=== PATIENT | male | born 1940 | race Caucasian/White ===

== ENCOUNTER 2018-02-26 07:41 | Inpatient (IN) | payer OTHER ==
[~2018-02-26] VITALS: Ht 167.6 cm; Wt 124.8 kg
[2018-02-26 10:58] VITALS: BP 131/75; PULSE 97; TEMP 36.9; O2SAT 94; Ht 167.6 cm; Wt 124.8 kg
[2018-02-26 11:10] VITALS: BP 131/75; PULSE 97; TEMP 36.9; O2SAT 95
[2018-02-26] MEDS ORDERED: ONDANSETRON INJ 2 MG/ML 2 ML VIAL IV PRN (11:45)
[2018-02-26] MEDS ORDERED: MAGNESIUM HYDROXIDE SUSP 30 ML UDC PO PRN (11:45)
[2018-02-26] MEDS ORDERED: INSULIN ASPART 100 UNITS/ML 3 ML PEN SC SCH ×2 (12:00→18:00)
[2018-02-26] MEDS ORDERED: NVLG SQ (12:03)
[2018-02-26] MEDS ORDERED: CETI10TA84 PO (12:03)
[2018-02-26] MEDS ORDERED: HYDR-4717 PO (12:03)
[2018-02-26] MEDS ORDERED: LISI10TA PO (12:03)
[2018-02-26] MEDS ORDERED: CHOLCAP2 PO (12:03)
[2018-02-26] MEDS ORDERED: ATOR80TA PO (12:03)
[2018-02-26] MEDS ORDERED: FRS/40 PO (12:03)
[2018-02-26] MEDS ORDERED: GLC/500 PO (12:03)
[2018-02-26] MEDS ORDERED: DILT120C68 PO (12:03)
[2018-02-26] MEDS ORDERED: METO25TA56 PO (12:03)
[2018-02-26] MEDS ORDERED: OMEG10007 PO (12:03)
[2018-02-26] MEDS ORDERED: PRLSR20 PO (12:03)
[2018-02-26] MEDS ORDERED: DIGO0.1219 PO (12:03)
[2018-02-26] MEDS ORDERED: ASPI81CH2 PO (12:03)
[2018-02-26] MEDS ORDERED: MULT-513 PO (12:03)
[2018-02-26] MEDS ORDERED: MXT150 PO ×2 (12:03)
[2018-02-26] MEDS ORDERED: LEVO75TA PO (12:03)
[2018-02-26] MEDS ORDERED: NITR0.6S7 SL (12:03)
[2018-02-26] MEDS ORDERED: INSDGI SC (12:03)
[2018-02-26] MEDS ORDERED: MoRPHine SULFATE 4 MG/ML 1 ML CARP\\VIAL IV PRN (12:15)
[2018-02-26] MEDS ORDERED: PNEUMOCOCCAL ADMINISTRATION CHARGE ONE (12:30)
[2018-02-26] MEDS ORDERED: PATIENT'S ALLERGY INFO NEEDS ENTERED SCH (12:45)
[2018-02-26] MEDS ORDERED: PNEUMOCOCCAL POLYSACCHARIDES 25 MCG/0.5 ML VIAL/SYR IM. ONE (13:00)
[2018-02-26] MEDS ORDERED: NURSING VERBAL MED ORDER ONE ×2 (13:00→14:15)
--- NOTE | 2018-02-26 13:43 | History and Physical ---
History & Physical Date & Time of Service: Feb 26, 2018 at 13:27 Chief Complaint: Hematuria, Bladder Mass Primary Care Physician: No Doctor, Assigned History of Present Illness pt is a transfer to our facility after presenting to [facility] ER with left lower quadrant abdominal pain associated with hematuria and possible bladder mass with comments on CT scan of possible lung metastasis. Pt is with poor site and poor hearing, is moving urine and this is now nga and not with hematuria. Despite recent heart history has not recent issues with chest pain or sob and no issues with orthopnea Past Medical/Surgical History Medical Problems: (1) Hematuria Social History Smoking Status: Former Smoker Smokeless Tobacco Use: No Alcohol Use: none Allergies Coded Allergies: No Known Allergies (Unverified , 02/26/18) Home Medications Scheduled Aspirin (Aspirin), 1 TAB PO DAILY Atorvastatin (Lipitor), 1 TAB PO DAILY Cetirizine (Zyrtec), 10 MG PO DAILY Cholecalciferol (D3-50), 1 CAP PO WK Digoxin (Digox), 125 MCG PO DAILY Diltiazem Hcl Ext Rel (Tiazac), 120 MG PO BID Fish Oil ([place]-3), 1 CAP PO DAILY Furosemide (Lasix), 40 MG PO BID Hydralazine Hcl (Apresoline), 25 MG PO TID Insulin Aspart (Novolog), 16 SQ TID Insulin Glargine (Lantus), 70 SC AMPM Levothyroxine Sodium (Synthroid), 1 TAB PO DAILY Metformin Hcl (Glucophage), 500 MG PO BID Metoprolol Tartrate (Lopressor) (Lopressor), 1 TAB PO BID Mexiletine Hcl (Mexiletine Hcl), 150 MG PO Q8 Mexiletine Hcl (Mexiletine Hcl), 150 MG PO BID Multivitamins/Minerals (Mvi With Minerals), 1 TAB PO DAILY Omeprazole (Prilosec), 20 MG PO DAILY Miscellaneous Medications Lisinopril (Prinivil), 10 MG PO Nitroglycerin (Nitroglycerin), 0.3 MG SL Review of Systems Constitutional: + weakness, + fatigue, No fever, No chills Respiratory: No cough, No shortness of breath, No dyspnea on exertion Cardiovascular: No chest pain, No orthopnea, No edema Abdomen: + pain, + nausea, No vomiting, No diarrhea Musculoskeletal: No joint pain, No muscle pain, No swelling Genitourinary - Male: + hematuria, No dysuria Neurologic: No memory loss, No paralysis, No numbness/tingling Psychiatric: No depression symptoms, No anhedonism, No anxiety Hematologic / Lymphatic: + abnormal bleeding/bruising, No swollen lymph nodes Integumentary: No rash, No itch, No new/changing skin lesions Physical Exam Vital Signs Date Time Temp Pulse Resp B/P (MAP) Pulse Ox O2 Delivery O2 Flow Rate FiO2 02/26/18 11:10 36.9 97 16 131/75 (93) 95 Nasal Cannula 3.0 02/26/18 10:58 36.9 97 19 131/75 94 Nasal Cannula 3.0 General Appearance: WD/WN, + mild distress Head: normocephalic, atraumatic Neck: supple, no JVD Respiratory/Chest: chest non-tender, lungs clear, normal breath sounds Cardiovascular: regular rate, rhythm, no murmur Abdomen/GI: normal bowel sounds, soft, + tenderness Back: normal inspection, no CVA tenderness, no muscle spasm Extremities/Musculoskelatal: no pedal edema, normal range of motion Neurologic/Psych: alert, oriented x 3 Skin: normal color, warm/dry, no rash Diagnostics Laboratory Results Results Past 24 Hours Test 02/26/18 12:38 Range/Units Impression Assessment and Plan 78 M transferred from [facility] ER with hematuria, suspicious bladder mass and concern for possible pulmonary metastasis. Has likely ischemic HOUSESMITH and defibrillator, takes digoxin but no recollection of anticoagulation Hematuria, did have U/s and CT at [facility], will send urine cytology, urology consult and place navarro. will not hydrate given unknown EF and cardiac status anemia type unknown, will follow and check iron chronic respiratory failure with hypoxia, supplemental oxygen with no use of inhalers Cardiac, will hold aspirin, continue metoprolol, lisinopril, diltiazem and digoxin, check Digoxin level. Suspect for Afib will cotinue rate controls and dig Htn continue hydralazine Diabetes with neuropathy will have on 1/2 dose of lantus with ssi and continue jaron I, also use Neurontin for neuropathic pain hypothyroidism, will continue Synthroid and check tsh prilosec for gerd scd and teds for DVT prevention given concern for hematuria Advanced Directives Existing Living Will: Yes Existing Power of Sub Prior: Yes Resuscitation Status VTE Prophylaxis Will order VTE Prophylaxis: Yes
[2018-02-26 15:06] VITALS: BP 150/61; PULSE 108; TEMP 36.9; O2SAT 97
[2018-02-26 15:35] VITALS: O2SAT 97
[2018-02-26] MEDS: MoRPHine SULFATE 2 MG/ML CARP IV PRN ×2 (15:48→23:31)
--- NOTE | 2018-02-26 16:55 | Urology Consultation ---
History General Date of Service: Feb 26, 2018. Chief Complaint: Hematuria Primary Care Physician: Ivy Watson D.O. Pt seen a urologist before?: Yes ([facility]) If yes, why?: hematuria History of Present Illness 78YO male with hematuria. Direct admit from [facility] - per admitting physician's report patient has a bladder tumor seen on CT with concern for pulmonary metastasis. CT images not yet available for me to review. Patient reports bladder pain x 3 months with hematuria, was being worked up for this by Urology through the [place] - scheduled for cystoscopy last week and was unable to coordinate transportation so this was not done. Had been rescheduled for next month however his worsening bladder pain brought him to [facility] yesterday. Also reports passing clumps of tissue in his urine x 3 months. Patient is a former smoker. Reports that he is still making good urine and passing urine without difficulty. Condom catheter in place at time of exam, draining clear yellow urine. Patient denies nausea/vomiting, denies fever. Reports that his bladder pain is currently well controlled with analgesics. Patient has hearing and vision deficit. Imaging Images were done at: [facility] - unavailable for review Laboratory Labs were reviewed and are within normal limits unless listed below. Labs are available in the chart and at [facility] Past History diabetes, GERD, hypertension, hypothyroidism Social History Hx Tobacco Use In Past Year?: No Smoking: quit greater than 1 year Drug use: none Allergies Coded Allergies: No Known Allergies (Unverified , 02/26/18) Medications Home Medications: Home Meds and Scripts Medications Dose Route/Sig Max Daily Dose Days Date Category Apresoline (Hydralazine Hcl) 50 Mg Tab 25 Mg PO TID 02/26/18 Reported Mexiletine Hcl 150 Mg Cap 150 Mg PO BID 02/26/18 Reported Mexiletine Hcl 150 Mg Cap 150 Mg PO Q8 02/26/18 Reported Labelle-3 (Fish Oil) 1 Ea Cap 1 Cap PO DAILY 02/26/18 Reported Prilosec (Omeprazole) 20 Mg Capcr 20 Mg PO DAILY 02/26/18 Reported Glucophage (Metformin Hcl) 500 Mg Tab 500 Mg PO BID 02/26/18 Reported Tiazac (Diltiazem HCl) 120 Mg Capcr 120 Mg PO BID 02/26/18 Reported Digox (Digoxin) 125 Mcg Tab 125 Mcg PO DAILY 02/26/18 Reported Lipitor (Atorvastatin) 80 Mg Tab 1 Tab PO DAILY 30 02/26/18 Reported Lantus (Insulin Glargine) 100 Unit/Ml Inj 70 SC AMPM 02/26/18 Reported Novolog (Insulin Aspart) 100 Units/Ml Inj 16 SQ TID 02/26/18 Reported Zyrtec (Cetirizine HCl) 10 Mg Tab 10 Mg PO DAILY 02/26/18 Reported Mvi With Minerals (Multivitamins/Minerals) Tab 1 Tab PO DAILY 02/26/18 Reported Synthroid (Levothyroxine Sodium) 75 Mcg Tab 1 Tab PO DAILY 30 02/26/18 Reported D3-50 (Cholecalciferol) 50,000 Unit Cap 1 Cap PO WK 84 02/26/18 Reported Prinivil (Lisinopril) 10 Mg Tab 10 Mg PO 02/26/18 Reported Lopressor (Metoprolol Tartrate) 25 Mg Tab 1 Tab PO BID 90 02/26/18 Reported Lasix (Furosemide) 40 Mg Tab 40 Mg PO BID 02/26/18 Reported Nitroglycerin 0.6 Mg Sub 0.3 Mg SL 02/26/18 Reported Aspirin 81 Mg Chw 1 Tab PO DAILY 30 02/26/18 Reported Inpatient Medications: Current Inpatient Medications Medications (Trade) Dose Ordered Sig/Davon Route Start Time Stop Time Status Last Admin Dose Admin Acetaminophen (Tylenol Tab) 650 mg Q4H PRN PO 02/26/18 11:45 03/28/18 11:44 Magnesium Hydroxide (Milk Of Magnesia Susp) 30 ml Q6H PRN PO 02/26/18 11:45 03/28/18 11:44 Ondansetron HCl (Zofran Inj) 4 mg Q6H PRN IV 02/26/18 11:45 03/28/18 11:44 Insulin Glargine (Lantus Solostar Pen) 35 units BID SC 02/26/18 21:00 03/28/18 20:59 Morphine Sulfate (MoRPHine SULFATE INJ) 2 mg Q4H PRN IV 02/26/18 12:15 03/12/18 12:14 02/26/18 15:48 2 MG Morphine Sulfate (MoRPHine SULFATE INJ) 4 mg Q4H PRN IV 02/26/18 12:15 03/12/18 12:14 Atorvastatin Calcium (Lipitor Tab) 80 mg DAILY PO 02/27/18 09:00 03/29/18 08:59 Cetirizine HCl (zyrTEC TAB) 10 mg DAILY PO 02/27/18 09:00 03/29/18 08:59 Digoxin (Lanoxin Tab) 0.125 mg DAILY PO 02/27/18 09:00 03/29/18 08:59 Diltiazem HCl (TIAzac CAP) 120 mg BID PO 02/26/18 21:00 03/28/18 20:59 Furosemide (Lasix Tab) 40 mg BID17 PO 02/26/18 17:00 03/28/18 16:59 Hydralazine HCl (Apresoline Tab) 25 mg TID PO 02/26/18 14:30 03/28/18 14:29 02/26/18 15:51 25 MG Levothyroxine Sodium (Synthroid Tab) 75 mcg DAILYBB PO 02/27/18 06:00 03/29/18 05:59 Lisinopril (Zestril Tab) 10 mg DAILY PO 02/27/18 09:00 03/29/18 08:59 Metoprolol Tartrate (Lopressor Tab) 25 mg BID PO 02/26/18 21:00 03/28/18 20:59 Pantoprazole Sodium (Protonix Tab) 40 mg DAILY PO 02/27/18 09:00 03/29/18 08:59 Insulin Aspart (novoLOG ASPART) SLIDING SCALE PARAMETER ACHS SC 02/26/18 17:15 03/28/18 17:14 Review of Systems Review of Systems Constitutional: No fever, No chills Eyes: No blurred vision Gastrointestinal: + abdominal pain, No nausea, No vomiting Cardiovascular: No chest pain Respiratory: No shortness of breath Skin: No problem reported Musculoskeletal: No back pain Ears / Nose / Throat: + hearing loss Psychologic / Mental: No problem reported Male : + see HPI Physical Exam Vital Signs: Vital Signs Past 12 Hours Date Time Temp Pulse Resp B/P (MAP) Pulse Ox O2 Delivery O2 Flow Rate FiO2 02/26/18 15:06 36.9 108 16 150/61 (90) 97 Nasal Cannula 3.0 02/26/18 12:00 Nasal Cannula 3.0 02/26/18 11:10 36.9 97 16 131/75 (93) 95 Nasal Cannula 3.0 02/26/18 10:58 36.9 97 19 131/75 94 Nasal Cannula 3.0 Physical Exam: General Appearance: no apparent distress Eyes: bilateral eyes normal inspection, bilateral eyes pertinent finding ( legally blind) ENT: hearing grossly normal (with loud voice) Neck: no JVD Respiratory/Chest: no respiratory distress, no accessory muscle use Cardiovascular: no JVD Gastrointestinal: Abdomen: diffuse Bladder: normal bladder Renal: normal renal Extremities: normal inspection Neurologic/Psychiatric: alert, normal mood/affect, oriented x 3 Skin: normal color Assessment & Plan Assessment & Plan 78YO male with hematuria. Per admitting physician, bladder mass and concern for pulmonary metastasis on CT from [facility] - images not available for me to review. Renal US images also not available for me to review. Check urine cytology. Condom catheter in place draining clear yellow urine - can continue, if drainage slows or patient reports bladder fullness advise bladder scan and Shin placement. Will plan to review CT images when available. NPO at midnight - potential cystoscopy, TURBT tomorrow. Thanks for the consult, will continue to follow.
[2018-02-26] MEDS: INSULIN ASPART 100 UNITS/ML 3 ML PEN SC SCH ×2 (18:04→21:27)
[2018-02-26] MEDS: FUROSEMIDE 40 MG TAB PO SCH (18:04)
[2018-02-26 21:27] LABS: HEMATOCRIT 28.8 % (42-52); MEAN CELL VOLUME 82.3 fL (80-100); MEAN CORPUSCULAR HEMOGLOBIN 25.7 pg (25-34); MEAN CORPUSCULAR HGB CONC 31.3 g/dl (32-36); MEAN PLATELET VOLUME 9.2 fL (7.4-10.4); PLATELET COUNT 366 K/uL (130-400); RED CELL DISTRIBUTION WIDTH CV 15.4 % (11.5-14.5); RED CELL DISTRIBUTION WIDTH SD 46.3 fL (36.4-46.3); WHITE BLOOD COUNT 13.36 K/uL (4.8-10.8)
[2018-02-26 21:33] VITALS: BP 145/55; PULSE 83
[2018-02-26] MEDS: INSULIN GLARGINE SOLOSTAR 100 UNITS/ML 3 ML PEN SC SCH (21:48)
--- NOTE | 2018-02-26 22:28 | Progress Note ---
Subjective Date of Service: Feb 26, 2018. Subjective Pt evaluation today including: conversation w/ patient, physical exam, review of studies Pain: left flank pain Voiding: incontinence pt had 125 cc pvr but has been incontinent of urine clear states he had a big blood clot several weeks ago and [facility] He is a disabled vet with COPD and CAD went to hospital for pain Not clear if he received blood Objective Vital Signs Date Time Temp Pulse Resp B/P (MAP) Pulse Ox O2 Delivery O2 Flow Rate FiO2 02/26/18 21:33 83 145/55 (85) 02/26/18 15:35 97 Nasal Cannula 3.0 02/26/18 15:06 36.9 108 16 150/61 (90) 97 Nasal Cannula 3.0 02/26/18 12:00 Nasal Cannula 3.0 02/26/18 11:10 36.9 97 16 131/75 (93) 95 Nasal Cannula 3.0 02/26/18 10:58 36.9 97 19 131/75 94 Nasal Cannula 3.0 Physical Exam General Appearance: + mild distress Abdomen: + tenderness Laboratory Results Last 24 Hours Test 02/26/18 12:00 02/26/18 12:38 02/26/18 17:10 02/26/18 20:58 Bedside Glucose 188 mg/dl 233 mg/dl 240 mg/dl Total Iron Binding Capacity 190 mcg/dl Test 02/26/18 21:08 White Blood Count 13.36 K/uL Red Blood Count 3.50 M/uL Hemoglobin 9.0 g/dL Hematocrit 28.8 % Mean Corpuscular Volume 82.3 fL Mean Corpuscular Hemoglobin 25.7 pg Mean Corpuscular Hemoglobin Concent 31.3 g/dl RDW Standard Deviation 46.3 fL RDW Coefficient of Variation 15.4 % Platelet Count 366 K/uL Mean Platelet Volume 9.2 fL Assessment and Plan CT shows large left sided bladder mass . Pt with some calcifications in the kidney no definite left hydro but suspect mass obstructs the left ureter Pt high risk for surgery and does not appaear to be a good candidate for a cystectomy Suspect invasive mass but ideally needs cysto and turbt for staging and possible cancer control Hct 28 blood to be typed and screened in AM .No current hematuria , will leave navarro out to prevent starting bleeding Unable to locate phone number of his sister to call will try to contact in AM urine c/s pending, start cipro empirically pending possible am surgery
[2018-02-26] MEDS: CIPROFLOXACIN / D5W 400 MG in PREMIXED IN D5W 200 ML IV SCH (22:53)
[2018-02-26 22:57] VITALS: BP 176/76; PULSE 86; TEMP 37.5; O2SAT 95
[2018-02-26] MEDS: METOPROLOL TARTRATE 25 MG TAB PO SCH (23:26)
[2018-02-26] MEDS: DILTIAZEM HCL 120 MG EXT REL CAP PO SCH (23:26)
[2018-02-27] VITALS (7 sets, daily range): BP systolic 116–163; BP diastolic 64–76; PULSE 62–76; TEMP 36.9–37; O2SAT 91–98
[2018-02-27] MEDS: ACETAMINOPHEN 325 MG TAB PO PRN ×2 (04:19→09:11)
[2018-02-27] MEDS ORDERED: NURSING VERBAL MED ORDER ONE ×2 (04:45→17:45)
[2018-02-27] MEDS: LEVOTHYROXINE 75 MCG TAB PO SCH (05:13)
[2018-02-27 06:10] LABS: HEMATOCRIT 27.7 % (42-52); HEMOGLOBIN 8.6 g/dL (14.0-18.0); MEAN CELL VOLUME 83.2 fL (80-100); MEAN CORPUSCULAR HEMOGLOBIN 25.8 pg (25-34); PLATELET COUNT 359 K/uL (130-400); RED CELL DISTRIBUTION WIDTH CV 15.4 % (11.5-14.5); RED CELL DISTRIBUTION WIDTH SD 46.8 fL (36.4-46.3); WHITE BLOOD COUNT 13.38 K/uL (4.8-10.8)
[2018-02-27] MEDS: INSULIN ASPART 100 UNITS/ML 3 ML PEN SC SCH ×4 (06:13→21:29)
--- NOTE | 2018-02-27 06:23 | Clinical Documentation Query ---
CLINICAL DOCUMENTATION QUERY 78-y/o male transfer from [facility] with left lower quadrant abdominal pain associated with hematuria and possible bladder mass with comments on CT scan of possible lung metastasis. Bladder mass only codes to disorder of bladder. In your clinical opinion is this patient being managed for: ( ) Suspected neoplastic bladder mass ( ) Not Agree ( ) Other explanation of clinical findings (No explanation is considered a No Response) ( ) Unable to determine ( ) Need to Discuss (Phone CDS or qliq) (No discussion is considered a No Response) The medical record reflects the following clinical findings, treatment, and risk factors. Clinical Indicators: As above Treatment: Urology consult, pending cysto and or TURBT Risk Factors: Age Please clarify and document your clinical opinion in the progress notes and discharge summary. Terms such as "probable", "suspected", "likely", "questionable", "possible", or "still to be ruled out" are acceptable. IF IN AGREEMENT, YOU MUST DOCUMENT ABOVE DIAGNOSTIC STATEMENT IN DAILY PROGRESS NOTES AND DISCHARGE SUMMARY. This document is not part of the patient's record. Thank You, Fadi Small RN [phone] & via qlicCONNECT
[2018-02-27 06:54] LABS: CALCIUM 8.4 mg/dl (8.5-10.1); CREATININE 1.74 mg/dl (0.60-1.40)
--- NOTE | 2018-02-27 08:00 | Clinical Documentation Query ---
CLINICAL DOCUMENTATION QUERY 78-y/o male transfer from [facility] with left lower quadrant abdominal pain associated with hematuria and possible bladder mass with comments on CT scan of possible lung metastasis. Bladder mass only codes to disorder of bladder. In your clinical opinion is this patient being managed for: ( x ) Suspected neoplastic bladder mass ( ) Not Agree ( ) Other explanation of clinical findings (No explanation is considered a No Response) ( ) Unable to determine ( ) Need to Discuss (Phone CDS or qliq) (No discussion is considered a No Response) The medical record reflects the following clinical findings, treatment, and risk factors. Clinical Indicators: As above Treatment: Urology consult, pending cysto and or TURBT Risk Factors: Age Please clarify and document your clinical opinion in the progress notes and discharge summary. Terms such as "probable", "suspected", "likely", "questionable", "possible", or "still to be ruled out" are acceptable. IF IN AGREEMENT, YOU MUST DOCUMENT ABOVE DIAGNOSTIC STATEMENT IN DAILY PROGRESS NOTES AND DISCHARGE SUMMARY. This document is not part of the patient's record. Thank You, Fadi Small RN [phone] & via qlicCONNECT
--- NOTE | 2018-02-27 08:16 | Progress Note ---
Subjective Date of Service: Feb 27, 2018. Subjective this pt is feeling discouraged as urology has told he probably metastatic disease he has some left lower quadrant pain Review of Systems Constitutional: No fever, No chills, No weakness, No fatigue Respiratory: No cough, No shortness of breath, No dyspnea on exertion Cardiac: No chest pain, No edema Abdomen: + pain, No nausea, No vomiting Male : No dysuria, No incontinence Neurologic: No memory loss, No weakness Psychiatric: No depression symptoms, No anxiety Objective Vital Signs Date Time Temp Pulse Resp B/P (MAP) Pulse Ox O2 Delivery O2 Flow Rate FiO2 02/27/18 07:21 36.9 66 20 116/69 (85) 96 Nasal Cannula 3.0 02/27/18 05:02 36.9 76 147/66 (93) 95 Nasal Cannula 3.0 02/26/18 23:28 Nasal Cannula 3.0 02/26/18 22:57 37.5 86 16 176/76 (109) 95 Nasal Cannula 2.0 02/26/18 21:33 83 145/55 (85) 02/26/18 15:35 97 Nasal Cannula 3.0 02/26/18 15:06 36.9 108 16 150/61 (90) 97 Nasal Cannula 3.0 02/26/18 12:00 Nasal Cannula 3.0 02/26/18 11:10 36.9 97 16 131/75 (93) 95 Nasal Cannula 3.0 02/26/18 10:58 36.9 97 19 131/75 94 Nasal Cannula 3.0 Physical Exam General Appearance: WD/WN, + moderate distress Eyes: normal inspection, sclerae normal Neck: supple, no JVD Respiratory/Chest: chest non-tender, lungs clear Cardiovascular: regular rate, rhythm, no murmur Abdomen: normal bowel sounds, soft, + tenderness Extremities: no pedal edema, no calf tenderness Neurologic/Psychiatric: alert, oriented x 3 Laboratory Results Last 24 Hours Test 02/26/18 12:00 02/26/18 12:38 02/26/18 17:10 02/26/18 20:58 Bedside Glucose 188 mg/dl 233 mg/dl 240 mg/dl Total Iron Binding Capacity 190 mcg/dl Test 02/26/18 21:08 02/27/18 05:33 02/27/18 06:01 White Blood Count 13.36 K/uL 13.38 K/uL Red Blood Count 3.50 M/uL 3.33 M/uL Hemoglobin 9.0 g/dL 8.6 g/dL Hematocrit 28.8 % 27.7 % Mean Corpuscular Volume 82.3 fL 83.2 fL Mean Corpuscular Hemoglobin 25.7 pg 25.8 pg Mean Corpuscular Hemoglobin Concent 31.3 g/dl 31.0 g/dl RDW Standard Deviation 46.3 fL 46.8 fL RDW Coefficient of Variation 15.4 % 15.4 % Platelet Count 366 K/uL 359 K/uL Mean Platelet Volume 9.2 fL 9.0 fL Sodium Level 135 mmol/L Potassium Level 4.0 mmol/L Chloride Level 102 mmol/L Carbon Dioxide Level 25 mmol/L Anion Gap 8.0 mmol/L Blood Urea Nitrogen 35 mg/dl Creatinine 1.74 mg/dl Est Creatinine Clear Calc Drug Dose 44.3 ml/min Estimated GFR () 42.9 Estimated GFR (Non- 37.0 BUN/Creatinine Ratio 20.2 Random Glucose 155 mg/dl Calcium Level 8.4 mg/dl Magnesium Level 2.0 mg/dl Iron Level 27 mcg/dl Bedside Glucose 173 mg/dl Assessment and Plan 78 M transferred from [facility] ER with hematuria, 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, will send urine cytology, urology consult Ct of chest suggests metastatic disease anemia of chronic disease plus iron deficiency anemia chronic respiratory failure with hypoxia,remains stable on supplemental oxygen with no use of inhalers Cardiac, will hold aspirin, continue metoprolol, lisinopril, diltiazem and digoxin, check Digoxin level. Suspect for Afib will continue rate controls and dig, son said pt had ablation, pending echo for EF here pre op Htn continue hydralazine Diabetes with neuropathy continue with 1/2 dose of lantus with ssi and continue jaron I, also use Neurontin for neuropathic pain hypothyroidism, clinically stable on Synthroid and check tsh prilosec for gerd scd and teds for DVT prevention given concern for hematuria
[2018-02-27] MEDS: DILTIAZEM HCL 120 MG EXT REL CAP PO SCH ×2 (08:50→21:30)
[2018-02-27] MEDS: DIGOXIN 0.125 MG TAB PO SCH (08:54)
[2018-02-27] MEDS: PANTOprazole SOD 40 MG TAB PO SCH (08:54)
[2018-02-27] MEDS: LISINOPRIL 10 MG TAB PO SCH (08:55)
[2018-02-27] MEDS: METOPROLOL TARTRATE 25 MG TAB PO SCH ×2 (08:55→21:31)
[2018-02-27] MEDS: ATORVASTATIN 40 MG TAB PO SCH (08:55)
[2018-02-27] MEDS: FUROSEMIDE 40 MG TAB PO SCH ×2 (08:56→17:14)
[2018-02-27] MEDS: CETIRIZINE HCL 10 MG TAB PO SCH (08:56)
[2018-02-27] MEDS: INSULIN GLARGINE SOLOSTAR 100 UNITS/ML 3 ML PEN SC SCH ×2 (09:03→21:28)
[2018-02-27] MEDS: CIPROFLOXACIN / D5W 400 MG in PREMIXED IN D5W 200 ML IV SCH ×2 (10:33→23:34)
--- NOTE | 2018-02-27 11:25 | DIAGNOSTIC IMAGING REPORT ---
CT OF THE CHEST WITHOUT IV CONTRAST CLINICAL HISTORY: Pulmonary nodules. COMPARISON STUDY: CT of the abdomen and pelvis February 25, 2018. CT DOSE: 859.23 mGy.cm TECHNIQUE: Axial images of the chest were obtained without IV contrast. Images were reviewed in the axial, sagittal, and coronal planes. IV contrast was not administered for this examination. A dose lowering technique was utilized adhering to the principles of ALARA. FINDINGS: No axillary or hilar lymphadenopathy is identified. Several mildly enlarged subcarinal lymph nodes measure up to 1.4 cm in short axis diameter. There are median sternotomy wires and postoperative findings consistent with bypass grafting. The heart is moderately enlarged. Extensive coronary artery calcification is present. There is suspected minimal mucus within the trachea. Innumerable pulmonary nodules are noted throughout the lungs. Index left lower lobe lesion shown image 142 measures 2 cm. Index right lower lobe lesion shown image 192 of 301 measures 1.1 cm. Index lingular lesion shown on image 149 measures 1 cm. These nodules are solid with slightly irregular margins. Index right upper lobe lesion shown on image 96 measures 1.1 cm. No pneumothorax or pleural effusion is noted. No suspicious bony lesions are shown. IMPRESSION: 1. Innumerable pulmonary nodules which measure up to 2 cm. Given the bladder mass on CT of February 25, 2018, these are highly suggestive of metastatic disease. 2. Several indeterminate mildly enlarged subcarinal lymph nodes. Electronically signed by: Guilherme Eric M.D. 02/27/2018 11:24 AM Dictated Date/Time: 02/27/2018 11:13 AM
[2018-02-27] MEDS: MoRPHine SULFATE 2 MG/ML CARP IV PRN (12:05)
[2018-02-27] MEDS ORDERED: PERFLUTREN LIPID MICROSPHERE (DEFINITY) IV ONE (13:38)
[2018-02-27] MEDS ORDERED: GLUCAGON FOR INJ 1 MG VIAL IM PRN (18:00)
[2018-02-27] MEDS ORDERED: GLUCOSE 40% GEL 15 GM TUBE PO PRN (18:00)
[2018-02-27] MEDS ORDERED: DEXTROSE 50% 50 ML SYR IV PRN (18:00)
[2018-02-27] MEDS ORDERED: GLUCOSE 10 TABS/TUBE PO PRN (18:00)
[2018-02-27] MEDS ORDERED: CARBOHYDRATES FOR HYPOGLYCEMIA PO PRN (18:00)
--- NOTE | 2018-02-27 19:22 | ECHOCARDIOGRAM REPORT ---
*NOTICE TO RECEIVING DEMOCRAT AGENCY This information is strictly Confidential and protected under [place] law. [place] law prohibits you from making any further disclosure of this information unless further disclosure is expressly permitted by the written consent of the person to whom it pertains or is authorized by law. A general authorization for the release of medical or other information is not sufficient for this purpose. Hospital accepts no responsibility if the information is made available to any other person, INCLUDING THE PATIENT. Interpretation Summary * Name: LINDA MICHAEL Study Date: 02/27/2018 01:06 PM BP: 155/76 mmHg * Patient Location: C.MSN\S\N378\S\2 HR: 72 * : 1940 (M/d/yyyy) Gender: Male Height: 66 in * Age: 78 yrs Ethnicity: CA Weight: 275 lb * Ordering Physician: Elias Roblero * Referring Physician: Self, Referred * Performed By: Tram Sal RDCS * * Reason For Study: CHF * BSA: 2.3 m2 * -- Conclusions -- * Technically difficult study despite use of definity ultrasound contrast. * 1. Grossly normal LV size and wall thickness. * 2. LVEF 60-65%. No regional wall motion abnormalities. * 3. RV not well visualized. * 4. Trace mitral regurgitation. * 5. Grade 2 diastolic dysfunction. * 6. No prior studies for comparison. Procedure Details * A complete two-dimensional transthoracic echocardiogram was performed (2D, M-mode, Doppler and color flow Doppler). * A contrast injection of Definity was performed to improve assessment of LV function. * Contrast was injected into an intravenous site in the left arm. * One vial of Definity ultrasound contrast was diluted in normal saline to a total volume of 10 ml. A total of '2' ml of solution was administered during imaging. * Lot # [id number] of Definity utilized for procedure. * Expiration date 1 JAN 23. * The attending nurse who injected the contrast agent was Nova Hayes RN. Left Ventricle * The left ventricle is grossly normal size. * There is normal left ventricular wall thickness. * Ejection Fraction = 60-65%. * No regional wall motion abnormalities noted. Right Ventricle * The right ventricle is not well visualized. * The right ventricular systolic function is normal as assessed by tricuspid annular plane systolic excursion (TAPSE) (normal >1.5 cm). Atria * The left atrial size is normal. * The left atrium is mildly dilated. * Right atrium not well visualized. * No ASD detected; PFO is not assessed. Mitral Valve * The mitral valve is grossly normal. * There is no mitral valve stenosis. * There is trace mitral regurgitation. Aortic Valve * The aortic valve opens well. * There is no significant aortic regurgitation. Pulmonic Valve * The pulmonary valve is inadequately visualized, but the Doppler data is adequate for interpretation. * There is no pulmonic valvular stenosis. * There is no significant pulmonary regurgitation. Great Vessels * The aortic root and proximal ascending aorta are normal sized. Pericardium/Pleural * There is no pericardial effusion. Great Vessels * IVC > 2.1, <50% change with respiration. Est RA 8 mmHg. Left Ventricular Diastolic Function * Diastolic dysfunction, Grade II (pseudonormalization pattern). MMode 2D Measurements and Calculations Ao root diam 3.5 cm Ao root area 9.6 cm\S\2 ACS 2.6 cm asc Aorta Diam 2.8 cm LVOT diam 2.2 cm LVOT area 3.9 cm\S\2 LVAd ap4 43.3 cm\S\2 LVLd ap4 9.6 cm EDV(MOD-sp4) 166.0 ml EDV(sp4-el) 166.0 ml LVAs ap4 25.2 cm\S\2 LVLs ap4 9.0 cm ESV(MOD-sp4) 59.7 ml ESV(sp4-el) 60.0 ml EF(MOD-sp4) 64.0 % EF(sp4-el) 63.9 % LVAd ap2 29.4 cm\S\2 LVLd ap2 7.4 cm EDV(MOD-sp2) 95.0 ml EDV(sp2-el) 98.8 ml LVAs ap2 15.8 cm\S\2 LVLs ap2 6.0 cm ESV(MOD-sp2) 35.1 ml ESV(sp2-el) 35.3 ml EF(MOD-sp2) 63.0 % EF(sp2-el) 64.3 % LVLd %diff -29.16 % EDV(MOD-bp) 139.4 ml LVLs %diff -49.46 % ESV(MOD-bp) 55.5 ml EF(MOD-bp) 60.2 % SV(MOD-sp4) 106.3 ml SI(MOD-sp4) 46.4 ml/m\S\2 SV(MOD-sp2) 59.9 ml SI(MOD-sp2) 26.2 ml/m\S\2 SV(MOD-bp) 83.9 ml SI(MOD-bp) 36.6 ml/m\S\2 SV(sp4-el) 106.0 ml SI(sp4-el) 46.3 ml/m\S\2 SV(sp2-el) 63.6 ml SI(sp2-el) 27.8 ml/m\S\2 Doppler Measurements and Calculations MV E max joya 93.1 cm/sec MV A max joya 75.2 cm/sec MV E/A 1.2 MV dec time 0.25 sec Ao V2 max 147.8 cm/sec Ao max PG 8.7 mmHg Ao max PG (full) 2.4 mmHg INGA(V,A) 3.4 cm\S\2 INGA(V,D) 3.4 cm\S\2 LV V1 max PG 6.4 mmHg LV V1 max 126.1 cm/sec PA V2 max 82.8 cm/sec PA max PG 2.7 mmHg PA acc slope 547.1 cm/sec\S\2 PA acc time 0.12 sec TR max joya 114.6 cm/sec PA pr(Accel) 23.5 mmHg
[2018-02-28] MEDS: LEVOTHYROXINE 75 MCG TAB PO SCH (05:59)
--- NOTE | 2018-02-28 07:38 | Progress Note ---
Subjective Date of Service: Feb 28, 2018. Objective Vital Signs Date Time Temp Pulse Resp B/P (MAP) Pulse Ox O2 Delivery O2 Flow Rate FiO2 02/27/18 23:38 36.9 67 16 163/70 (101) 91 Nasal Cannula 3.0 02/27/18 20:39 Nasal Cannula 3.0 02/27/18 14:53 37.0 62 18 157/68 (97) 96 Nasal Cannula 2.0 02/27/18 12:17 63 16 136/73 (94) 98 Nasal Cannula 3.0 02/27/18 10:33 66 98 02/27/18 09:11 72 16 155/76 (102) 97 Nasal Cannula 3.0 02/27/18 08:54 72 02/27/18 07:45 Room Air Laboratory Results Last 24 Hours Test 02/27/18 08:14 02/27/18 11:50 02/27/18 17:35 02/27/18 20:56 Bedside Glucose 155 mg/dl 169 mg/dl 150 mg/dl 198 mg/dl Test 02/28/18 04:44 Assessment and Plan 78 M transferred from [facility] ER with hematuria, 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 Has likely ischemic [employer] and defibrillator, takes digoxin but no recollection of anticoagulation Hematuria, did have U/s and CT at [facility], will send urine cytology, urology consult Ct of chest suggests metastatic disease anemia of chronic disease plus iron deficiency anemia chronic respiratory failure with hypoxia,remains stable on supplemental oxygen with no use of inhalers Cardiac, will hold aspirin, continue metoprolol, lisinopril, diltiazem and digoxin, check Digoxin level. Suspect for Afib will continue rate controls and dig, son said pt had ablation, pending echo for EF here pre op Htn continue hydralazine Diabetes with neuropathy continue with 1/2 dose of lantus with ssi and continue jaron I, also use Neurontin for neuropathic pain hypothyroidism, clinically stable on Synthroid and check tsh prilosec for gerd scd and teds for DVT prevention given concern for hematuria
[2018-02-28 07:39] VITALS: BP 160/65; PULSE 66; TEMP 37; O2SAT 96
[2018-02-28 08:15] LABS: HEMOGLOBIN 8.7 g/dL (14.0-18.0); MEAN CELL VOLUME 82.6 fL (80-100); MEAN CORPUSCULAR HEMOGLOBIN 25.7 pg (25-34); MEAN CORPUSCULAR HGB CONC 31.1 g/dl (32-36); MEAN PLATELET VOLUME 8.7 fL (7.4-10.4); PLATELET COUNT 362 K/uL (130-400); RED CELL DISTRIBUTION WIDTH CV 15.5 % (11.5-14.5); RED CELL DISTRIBUTION WIDTH SD 46.7 fL (36.4-46.3); WHITE BLOOD COUNT 12.39 K/uL (4.8-10.8)
[2018-02-28 08:58] LABS: CALCIUM 8.8 mg/dl (8.5-10.1); CREATININE 1.7 mg/dl (0.60-1.40); POTASSIUM 4.2 mmol/L (3.5-5.1)
[2018-02-28] MEDS: DIGOXIN 0.125 MG TAB PO SCH (09:03)
[2018-02-28] MEDS: FUROSEMIDE 40 MG TAB PO SCH ×2 (09:04→16:42)
[2018-02-28] MEDS: ATORVASTATIN 40 MG TAB PO SCH (09:04)
[2018-02-28] MEDS: METOPROLOL TARTRATE 25 MG TAB PO SCH (09:05)
[2018-02-28] MEDS: PANTOprazole SOD 40 MG TAB PO SCH (09:05)
[2018-02-28] MEDS: DILTIAZEM HCL 120 MG EXT REL CAP PO SCH (09:06)
[2018-02-28] MEDS: LISINOPRIL 10 MG TAB PO SCH (09:06)
[2018-02-28] MEDS: CETIRIZINE HCL 10 MG TAB PO SCH (09:07)
[2018-02-28] MEDS: INSULIN ASPART 100 UNITS/ML 3 ML PEN SC SCH ×3 (09:20→17:43)
[2018-02-28] MEDS: INSULIN GLARGINE SOLOSTAR 100 UNITS/ML 3 ML PEN SC SCH (09:28)
[2018-02-28] MEDS: CIPROFLOXACIN / D5W 400 MG in PREMIXED IN D5W 200 ML IV SCH (10:40)
--- NOTE | 2018-02-28 11:17 | Progress Note ---
Subjective Date of Service: Feb 28, 2018. 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 Long conversation today with sister (CHERELLE Hartmann) - they desire to continue care with our service and [facility] oncology. Complex family dynamics, I encouraged communication between patient, his children, and POA. Miscommunications were resolved to the best of my ability. Dr. Enriquez spoke with patient's family last night via phone. Bladder tumor to be evaluated with outpatient cystoscopy with Dr. Enriquez on Saturday, March 05 at 3:40pm - appointment confirmed with POA. Dr. Roblero to coordinate outpatient oncology referral in 2 weeks. POA requests conversation with Care Coordination team to discuss home health - will facilitate. Condom catheter remains in place draining clear yellow urine. Patient denies pain. Patient denies bladder fullness/distention. Review of Systems Constitutional: No chills, No sweats Eyes: + see HPI ENT: No problem reported Respiratory: No shortness of breath Cardiac: No chest pain Abdomen: No pain, No nausea, No vomiting Male : + see HPI Neurologic: No numbness/tingling Objective Vital Signs Date Time Temp Pulse Resp B/P (MAP) Pulse Ox O2 Delivery O2 Flow Rate FiO2 02/28/18 09:03 70 02/28/18 07:50 Nasal Cannula 3.0 02/28/18 07:49 Nasal Cannula 3.0 02/28/18 07:39 37.0 66 18 160/65 (96) 96 Nasal Cannula 3.0 02/27/18 23:38 36.9 67 16 163/70 (101) 91 Nasal Cannula 3.0 02/27/18 20:39 Nasal Cannula 3.0 02/27/18 14:53 37.0 62 18 157/68 (97) 96 Nasal Cannula 2.0 02/27/18 12:17 63 16 136/73 (94) 98 Nasal Cannula 3.0 Physical Exam General Appearance: no apparent distress Eyes: normal inspection, + pertinent finding (legally blind) ENT: hearing grossly normal (hard of hearing) Neck: no JVD Respiratory/Chest: no respiratory distress, no accessory muscle use Cardiovascular: no JVD Abdomen: non tender, soft Extremities: normal inspection Neurologic/Psychiatric: alert, normal mood/affect, oriented x 3 Skin: normal color Laboratory Results Last 24 Hours Test 02/27/18 11:50 02/27/18 17:35 02/27/18 20:56 02/28/18 07:57 Bedside Glucose 169 mg/dl 150 mg/dl 198 mg/dl White Blood Count 12.39 K/uL Red Blood Count 3.39 M/uL Hemoglobin 8.7 g/dL Hematocrit 28.0 % Mean Corpuscular Volume 82.6 fL Mean Corpuscular Hemoglobin 25.7 pg Mean Corpuscular Hemoglobin Concent 31.1 g/dl RDW Standard Deviation 46.7 fL RDW Coefficient of Variation 15.5 % Platelet Count 362 K/uL Mean Platelet Volume 8.7 fL Sodium Level 138 mmol/L Potassium Level 4.2 mmol/L Chloride Level 102 mmol/L Carbon Dioxide Level 26 mmol/L Anion Gap 10.0 mmol/L Blood Urea Nitrogen 32 mg/dl Creatinine 1.70 mg/dl Est Creatinine Clear Calc Drug Dose 45.4 ml/min Estimated GFR () 44.1 Estimated GFR (Non- 38.1 BUN/Creatinine Ratio 18.6 Random Glucose 139 mg/dl Calcium Level 8.8 mg/dl Thyroid Stimulating Hormone (TSH) 6.300 uIu/ml Free Thyroxine 1.14 ng/dl Digoxin Level 1.1 ng/ml Test 02/28/18 08:07 Bedside Glucose 208 mg/dl Assessment and Plan Outpatient management as listed above.
[2018-02-28 11:30] VITALS: BP 129/50; PULSE 60; TEMP 36.8; O2SAT 96
[2018-02-28 11:50] VITALS: BP 160/65; PULSE 70; TEMP 37; O2SAT 96
[2018-02-28] MEDS ORDERED: RXC5 PEG (11:51)
[2018-02-28] MEDS ORDERED: SENN-61 PO (11:51)
[2018-02-28] MEDS ORDERED: CIPR-255 PO (11:51)
--- NOTE | 2018-02-28 11:52 | Discharge Instructions ---
Discharge Instructions Date of Service Feb 28, 2018. Admission Reason for Admission: Hematuria, Bladder Mass Discharge Discharge Diagnosis / Problem: hematuria, bladder mass Discharge Goals Goal(s): Diagnostic testing, Therapeutic intervention Activity Recommendations Activity Limitations: as noted below Lifting Limitations: gradually increase as tolerated . Current Hospital Diet Patient's current hospital diet: Diabetes Type 2 Diet Discharge Diet Recommended Diet: Diabetes Type 2 Diet Pending Studies Studies pending at discharge: yes List of pending studies: urine cytology Medical Emergencies . Who to Call and When: Medical Emergencies: If at any time you feel your situation is an emergency, please call 911 immediately. . Non-Emergent Contact Non-Emergency issues call your: Primary Care Provider Call Non-Emergent contact if: temperature is above 101, your pain is not controlled . . "Provider Documentation" section prepared by Elias Roblero. .
[2018-02-28] MEDS ORDERED: BISACODYL 10 MG SUPP PR STA (11:54)
[2018-02-28 13:37] VITALS: BP 129/50; PULSE 60; TEMP 36.8; O2SAT 96
[2018-02-28] MEDS ORDERED: RXC5 PO (14:02)
--- NOTE | 2018-02-28 15:00 | Discharge Summary ---
Discharge Summary Date of Service Feb 28, 2018. Discharge Summary Admission Date: Feb 26, 2018 at 11:48 Discharge Date: Feb 28, 2018 Discharge Disposition: Home with services Principal Diagnosis: bladder mass suspect malignancy Medication Reconciliation New Medications: Ciprofloxacin Hcl (Cipro) 500 Mg Tab 1 TAB PO BID for 7 Days, #14 TAB Oxycodone HCl (Oxycodone HCl) 5 Mg Tab 10 MG PO QID, #40 TAB Senna (Senokot) 8.6 Mg Tab 2 TAB PO DAILY, #60 TAB Continued Medications: Atorvastatin (Lipitor) 80 Mg Tab 1 TAB PO DAILY for 30 Days, #30 TAB 5 Refills Cetirizine (Zyrtec) 10 Mg Tab 10 MG PO DAILY, TAB Cholecalciferol (D3-50) 50,000 Unit Cap 1 CAP PO WK for 84 Days, #12 CAP Digoxin (Digox) 125 Mcg Tab 125 MCG PO DAILY Diltiazem Hcl Ext Rel (Tiazac) 120 Mg Capcr 120 MG PO BID, CAP Fish Oil ([place]-3) 1 Ea Cap 1 CAP PO DAILY, CAP Furosemide (Lasix) 40 Mg Tab 40 MG PO BID, TAB Hydralazine Hcl (Apresoline) 50 Mg Tab 25 MG PO TID, TAB Insulin Aspart (Novolog) 100 Units/Ml Inj 16 SQ TID Insulin Glargine (Lantus) 100 Unit/Ml Inj 70 SC AMPM, VIAL Levothyroxine Sodium (Synthroid) 75 Mcg Tab 1 TAB PO DAILY for 30 Days, #30 TAB 5 Refills Lisinopril (Prinivil) 10 Mg Tab 10 MG PO, TAB Metformin Hcl (Glucophage) 500 Mg Tab 500 MG PO BID, TAB Metoprolol Tartrate (Lopressor) (Lopressor) 25 Mg Tab 1 TAB PO BID for 90 Days, #180 TAB 1 Refill Multivitamins/Minerals (Mvi With Minerals) Tab 1 TAB PO DAILY, TAB Nitroglycerin (Nitroglycerin) 0.6 Mg Sub 0.3 MG SL Omeprazole (Prilosec) 20 Mg Capcr 20 MG PO DAILY, CAP Discontinued Medications: Aspirin (Aspirin) 81 Mg Chw 1 TAB PO DAILY for 30 Days, #30 TAB 3 Refills Mexiletine Hcl (Mexiletine Hcl) 150 Mg Cap 150 MG PO Q8 Mexiletine Hcl (Mexiletine Hcl) 150 Mg Cap 150 MG PO BID Discharge Exam Review of Systems: Constitutional: No fever, No chills Respiratory: No cough, No shortness of breath Cardiovascular: No chest pain, No edema Abdomen: No pain, No nausea, No diarrhea Physical Exam: General Appearance: WD/WN, + mild distress Respiratory/Chest: chest non-tender, lungs clear, normal breath sounds Cardiovascular: regular rate, rhythm, no murmur Abdomen / GI: normal bowel sounds, non tender, soft Hospital Course 78 M transferred from [facility] ER with hematuria, 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 Ct of chest suggests metastatic disease anemia of chronic disease plus iron deficiency anemia chronic respiratory failure with hypoxia,remains stable on supplemental oxygen with no use of inhalers Cardiac, will hold aspirin, continue metoprolol, lisinopril, diltiazem and digoxin, check Digoxin level. Suspect for Afib will continue rate controls and dig, son said pt had ablation, echo has reserved EF Htn continue hydralazine Diabetes with neuropathy continue with lantus continue jaron I, also use Neurontin for neuropathic pain hypothyroidism, clinically stable on Synthroid and check tsh prilosec for gerd will tentatively schedule outpt onc evaluation one week after cysto Total Time Spent: Greater than 30 minutes This includes examination of the patient, discharge planning, medication reconciliation, and communication with other providers. Discharge Instructions Please refer to the electronic Patient Visit Report (Discharge Instructions) for additional information.
[2018-02-28 16:19] VITALS: BP 142/69; PULSE 60; TEMP 36.9; O2SAT 96
[2018-02-28] MEDS: ACETAMINOPHEN 325 MG TAB PO PRN (16:50)
== END 2018-02-28 20:34 | disposition home health service (06) | DRG 687 ==
LOC: C.MSN 10:48 → OBSVTOIN 11:48
PROVIDERS: ADMIT Internal Medicine; ATTEND Internal Medicine
DX: C67.9 Malignant neoplasm of bladder, unspecified (principal); C78.00 Secondary malignant neoplasm of unspecified lung; J96.11 Chronic respiratory failure with hypoxia; Z87.891 Personal history of nicotine dependence; Z79.4 Long term (current) use of insulin; Z79.84 Long term (current) use of oral hypoglycemic drugs; I25.5 Ischemic cardiomyopathy; D50.9 Iron deficiency anemia, unspecified; I10 Essential (primary) hypertension; I48.91 Unspecified atrial fibrillation; E11.40 Type 2 diabetes mellitus with diabetic neuropathy, unspecified; Z95.810 Presence of automatic (implantable) cardiac defibrillator; E03.9 Hypothyroidism, unspecified; Z79.82 Long term (current) use of aspirin